=== PATIENT | female | born 1975 | race Caucasian/White ===

== ENCOUNTER 2020-01-04 13:04 | Emergency (ER) | payer MEDICARE, MEDICAID, SELFPAY ==
--- NOTE | 2020-01-04 12:56 | ECG_ITS ---
APPROVED REPORT Exam: Resting ECG HR:95 bpm ECG Measurements Heart Rate 95 AXES [place] 134 P 44 QRSd 74 QRS -3 QT 362 T 11 QTc 454 <Conclusion> Normal sinus rhythm Nonspecific ST abnormality Abnormal ECG Electronically signed by : Ermias Owens, 01/05/2020 08:26:17
[2020-01-04 13:05] VITALS: BP 121/70; PULSE 101; RESP 19; TEMP 36.6; O2SAT 98; BMI 42.0
--- NOTE | 2020-01-04 13:05 | HMH.EDGENADL ---
ED Disposition Clinical Impression: Palpitations Disposition: Home, Self-Care Condition on Discharge: Good Instructions: DI for Palpitations Additional Instructions: Return to the emergency room if symptoms return. Call Dr. Strange's office to schedule follow-up appointment. Referrals: Jonah Klein [Primary Care Provider] - Aldo Strange MD [Staff Physician] - - Critical Care Critical Care Time: No Attestation: On , the high probability of a clinically significant, sudden or life threatening deterioration of the following system(s) required my full and direct attention, intervention and personal management. The time I documented below is in addition to time spent performing reported procedures but includes the following listed in this critical care notation. Medical Decision Making - Medical Records Medical records reviewed: Yes: I reviewed the patient's medical records. - Dickson Inquiry Pt receiving controlled substance: No Vital Signs: 01/04/20 13:05 01/04/20 13:35 01/04/20 14:21 Temperature 98 F Temperature Source Oral Pulse Rate Pulse Rate [Left Radial] 101 H 91 H 73 Respiratory Rate 19 20 Blood Pressure Blood Pressure [Right Radial Artery] 121/70 130/80 113/73 Blood Pressure Mean [Right Radial Artery] 87 96 86 Blood Pressure Source [Right Radial Artery] Automatic Cuff Blood Pressure Position Blood Pressure Position [Right Radial Artery] Sitting Sitting Sitting 02 Sat by Pulse Oximetry 98 98 Oxygen Delivery Method Room Air Room Air 01/04/20 15:00 01/04/20 16:10 Temperature 98 F Temperature Source Oral Pulse Rate 78 Pulse Rate [Left Radial] 82 Respiratory Rate 20 16 Blood Pressure 123/74 Blood Pressure [Right Radial Artery] 109/68 L Blood Pressure Mean [Right Radial Artery] 81 Blood Pressure Source [Right Radial Artery] Automatic Cuff Blood Pressure Position Sitting Blood Pressure Position [Right Radial Artery] Supine 02 Sat by Pulse Oximetry 97 Oxygen Delivery Method Room Air Room Air - Lab Data Lab results reviewed: Yes: I reviewed the patient's lab results. Lab Results 01/04/20 13:25: WBC 13.1 H, RBC 4.53, Hgb 14.4, Hct 40.5, MCV 89.5, MCH 31.7 H, MCHC 35.5 H, RDW 13.1, Plt Count 307, MPV 7.5, Neut % (Auto) 82.4 H, Lymph % (Auto) 13.6, [place] % (Auto) 3.0, Eos % (Auto) 0.6, Baso % (Auto) 0.4, Neut # (Auto) 10.8 H, Lymph # (Auto) 1.8, [place] # (Auto) 0.4, Eos # (Auto) 0.1, Baso # (Auto) 0.1 01/04/20 13:25: Sodium 141, Potassium 4.1, Chloride 105, Carbon Dioxide 27, Anion Gap 13.1, BUN 11, Creatinine 0.90, Estimated Creat Clear 56, Estimated GFR 67, Est GFR ( Amer) 82, Glucose 124 H, Calcium 9.1, Troponin I < 0.01 01/04/20 13:25: TSH 1.15, Free T4 Index 3.8 L, Thyroxine (T4) 13.4 H, T3 Uptake 28 01/04/20 13:25: D-Dimer 199 01/04/20 15:28: Troponin I < 0.01 Result diagrams: 01/04/20 13:25 01/04/20 13:25 - Radiology Data #1 Image(s): Chest Image Reviewed: Yes I reviewed the patient's radiology image, Yes I have reviewed radiologist's interpretation Preliminary Findings: Normal/NAD - ECG Data Tracing #1 EKG interpreted by Jonah Huber MD: Rhythm: sinus Rate: 96 [place]: normal Ectopy: none Conduction: normal ST Segment Changes: none T Wave Changes: none Q Waves: none No evidence of acute ischemia or injury Normal electrocardiogram - Reevaluation(s) Time: 15:25 Reevaluation #1: Patient appears extremely anxious. States she is feeling extremely anxious and feels stuck . She feels like she needs to go. Discussed doing a second troponin, she is agreeable to that but would like to try now instead of waiting for 3 hours. She also complains of some discomfort behind her left ear. She says I do not think it has anything to do with anything . General Adult HPI - General Chief complaint: Chest Pain Stated complaint: chest pain Time Seen by Provider: 01/04/20 13:20 - History of Present Illness HPI narrative:
--- NOTE | 2020-01-04 13:27 | XR_ITS ---
PROCEDURE: XR CHEST PORTABLE CLINICAL HISTORY: palpatations COMPARISON: No exams were available for comparison FINDINGS: The cardiomediastinal silhouette and pulmonary vascularity are within normal limits. The lungs are clear without infiltrates, suspicious nodules, or pleural effusions. No acute bony abnormalities. IMPRESSION: No acute findings. Dictated b Flynn Moses MD 01/04/2020 15:04 Flynn Moses MD in [place] 01/04/2020 15:04
[2020-01-04 13:34] LABS: Basophils # 0.1 K/mm3 (0-0.2); Basophils % 0.4 % (0.1-2.0); Eosinophils # 0.1 K/mm3 (0.0-0.4); Eosinophils % 0.6 % (0.1-12.0); Hematocrit 40.5 % (37.0-47.0); Hemoglobin 14.4 g/dL (12.2-16.2); Lymphocytes # 1.8 K/mm3 (0.7-4.5); Lymphocytes % 13.6 % (10-50); Mean Corpuscular HGB Conc 35.5 g/dL (31.8-35.4); Mean Corpuscular Hemoglobin 31.7 pg (27.0-31.2); Mean Corpuscular Volume 89.5 fl (81-99); Mean Platelet Volume 7.5 fl (7.4-10.4); Monocytes # 0.4 K/mm3 (0.1-1.0); Neutrophils # 10.8 K/mm3 (1.8-7.8); Neutrophils % 82.4 % (37.0-80.0); Platelet Count 307 K/mm3 (142-424); Red Blood Count 4.53 M/mm3 (4.20-5.40); Red Cell Distribution Width 13.1 % (11.5-17.5); White Blood Count 13.1 K/mm3 (4.8-10.8)
[2020-01-04 13:35] VITALS: BP 130/80; PULSE 91; RESP 20; O2SAT 98
[2020-01-04 13:36] LABS: Chloride 105 mmol/L (98-107); Potassium 4.1 mmoL/L (3.5-5.1); Sodium 141 mmol/L (136-145)
[2020-01-04 13:39] LABS: Anion Gap 13.1 mEq/L (5-15); Blood Urea Nitrogen 11 mg/dl (7-17); Calcium 9.1 mg/dl (8.4-10.2); Carbon Dioxide 27 mmol/L (22.0-30.0); Creatinine Clearance Estimated 56 mL/min (50-200); Estimated Glomerular Filt Rate 67 ml/min (>60); GFR (African American) 82 ML/MIN (>60); Glucose 124 mg/dl (74-100)
[2020-01-04 13:52] LABS: Troponin I < 0.01 ng/ml (0.00-0.034)
[2020-01-04 14:03] LABS: D-Dimer 199 ng/mL (0-400)
[2020-01-04 14:21] VITALS: BP 113/73; PULSE 73
[2020-01-04 14:24] LABS: Free Thyroxine Index 3.8 ug/dL (5.93-13.13); T4 (Thyroxine) 13.4 ug/dl (5.53-11.0); Triiodothryronine (T3) Uptake 28 % (23.5-40.5)
[2020-01-04 14:38] LABS: Thyroid Stimulating Hormone 1.15 uIU/mL (0.465-4.68)
[2020-01-04 15:00] VITALS: BP 109/68; PULSE 82; RESP 20; O2SAT 97
[2020-01-04 15:57] LABS: Troponin I < 0.01 ng/ml (0.00-0.034)
[2020-01-04 16:10] VITALS: BP 123/74; PULSE 78; RESP 16; TEMP 36.6; O2SAT 98
== END 2020-01-04 16:12 | disposition home or self-care (01) ==
PROVIDERS: Emergency Provider Emergency Medicine; PCP Pediatrics
DX: R00.2 Palpitations (principal); R06.02 Shortness of breath; Z91.040 Latex allergy status
CPT/HCPCS: 71045; 80048; 84436; 84443; 84479; 84484; 85025; 85378; 93005; 99283

== ENCOUNTER 2020-03-27 12:06 | Emergency (ER) | payer MEDICARE, MEDICAID, SELFPAY ==
[2020-03-27 12:23] VITALS: BP 127/82; PULSE 84; RESP 20; TEMP 36.9; O2SAT 99; BMI 41.5
--- NOTE | 2020-03-27 12:25 | HMH.EDUTC ---
[facility] [place] Disposition Clinical Impression: Exposure to COVID-19 virus Disposition: Home, Self-Care Condition on Discharge: Good Instructions: Preventing the Spread of Coronavirus Discharge Instructions Additional Instructions: Drink plenty of fluids. Take tylenol for pain or fever. Follow up with your regular doctor. GO TO THE ER FOR ANY WORSENING SYMPTOMS Referrals: Jonah Klein [Primary Care Provider] - Time of Disposition: 12:28 Medical Decision Making - Medical Records Medical records reviewed: No: I reviewed the patient's medical records. - Dickson Inquiry Pt receiving controlled substance: No Vital Signs: 03/27/20 12:23 03/27/20 12:28 Temperature 98.4 F 98.4 F Temperature Source Oral Pulse Rate 84 Pulse Rate [Right Brachial] 84 Respiratory Rate 20 20 Blood Pressure 127/82 Blood Pressure [Right Arm] 127/82 Blood Pressure Mean [Right Arm] 97 Blood Pressure Source [Right Arm] Automatic Cuff Blood Pressure Position [Right Arm] Sitting 02 Sat by Pulse Oximetry 99 Oxygen Delivery Method Room Air Orders (Tests/Meds): ORDERS Category Date Time Status Covid-19 Nasal PCR Sendout Mp Stat Lab 03/27/20 12:20 Received [facility] [place] HPI - General Stated complaint: wants covid test Time Seen by Provider: 03/27/20 12:25 - History of Present Illness Provider Complaint: She is here to be checked for covid. She denies any symptoms. Her father has copd, so she is afraid that she could pack covid to him. She had to fly somewhere. - Related Data Allergies Allergy/AdvReac Type Severity Reaction Status Date / Time latex Allergy Verified 01/04/20 13:26 [facility] History - Hepatitis A Screen Attestation statement:: This patient has been screened for Hepatitis A risk factors. I have reviewed the patient's past medical history: Yes - Social History Alcohol Intake: never Occupational Status: other Household Members: other ROS Obtained: Yes All systems reviewed & no additional complaints - Constitutional Constitutional: Reports system reviewed and no additional complaints, except as docu - Eyes Eyes: Reports system reviewed and no additional complaints, except as docu - ENT Ears, Nose, Mouth, and Throat: Reports system reviewed and no additional complaints, except as docu - Cardiovascular Cardiovascular: Reports system reviewed and no additional complaints, except as docu - Respiratory Respiratory: Yes system reviewed and no additional complaints, except as docu - Gastrointestinal Gastrointestingal: Reports: system reviewed and no additional complaints, except as docu Physical Exam - General General appearance: alert, in no apparent distress - Head Head exam: atraumatic, normocephalic, normal inspection - Eye Eye exam: Present: normal appearance, PERRL, EOMI - ENT ENT exam: Present: normal exam, normal oropharynx, mucous membranes moist, TM's normal bilaterally, normal external ear exam - Neck Neck exam: Present: normal inspection, full ROM, trachea midline. Absent: meningismus, lymphadenopathy - Chest Chest inspection: Present: normal inspection, symmetric chest wall rise. Absent: tenderness - Respiratory Respiratory exam: Present: normal lung sounds bilaterally. Absent: respiratory distress - Cardiovascular Cardiovascular exam: Present: regular rate, normal rhythm. Absent: JVD - Abdominal Exam Abdominal exam: Present: soft, normal bowel sounds. Absent: distention, tenderness, guarding - Extremities Exam Extremities exam: Present: normal inspection, full ROM, normal capillary refill. Absent: calf tenderness - Back Exam Back exam: Present: normal inspection. Absent: tenderness - Neurological Exam Neurological exam: Present: alert, oriented X3 - Psychiatric Psychiatric exam: Present: normal affect, normal mood - Skin Skin exam: Present: warm, dry, intact, normal color - Lymphatic Lymphatic Findings: no adenopathy
[2020-03-27 12:28] VITALS: BP 127/82; PULSE 84; RESP 20; TEMP 36.9; O2SAT 99
[2020-03-28 12:18] LABS: Covid-19 Nasal PCR Sendout Lex Not Detected
== END 2020-03-27 12:30 | disposition home or self-care (01) ==
PROVIDERS: Emergency Provider Nurse Practitioner Family; PCP Pediatrics
DX: Z20.828 Contact with and (suspected) exposure to other viral communicable diseases (principal)
CPT/HCPCS: 99201; U0004

== ENCOUNTER 2020-04-21 11:35 | Emergency (ER) | payer MEDICARE, MEDICAID, SELFPAY ==
[2020-04-21 12:15] VITALS: BP 115/86; PULSE 71; RESP 16; TEMP 36.8; O2SAT 98; BMI 41.5
--- NOTE | 2020-04-21 12:37 | HMH.EDUTC ---
[facility] [place] Disposition Clinical Impression: Exposure to COVID-19 virus Disposition: Home, Self-Care Condition on Discharge: Good Instructions: Preventing the Spread of Coronavirus Discharge Instructions Additional Instructions: *Monitor Temp, Over the counter Motrin or Tylenol as directed/as needed Tylenol every 4 hours and Motrin every 6 hours (as long as your family doctor has told you that you can take it) for fever or pain. and straight to ER if unable to lower temp less than 101.0 after medication given *Warm salt water gargles may help to soothe the throat *Throat Lozenges *Warm fluids like tea with honey may help to soothe the throat *Sleep elevated *Humidifier/Vaporizer *Flonase 2 sprays in each nostril daily but be aware that it may take 2-3 days before you notice improvement Follow up IMMEDIATELY for new or worsening symptoms or no Noticeable improvement over the next 48-72 hours. 911 for difficulty breathing or swallowing You was tested for today for COVID19 your test result should be back in the next 24-48 hours, you may call to the [facility] tomorrow to see if your test results are back and the result [phone] [facility] hours are 9am-9pm You was given a handout with instructions for Self Quarantine and Self isolation for while you wait on test results and what to do if they are positive If you are positive the Health Dept will be contacting you also Referrals: Jonah Klein [Primary Care Provider] - As needed Forms: Work/School Release Time of Disposition: 12:40 Medical Decision Making - Dickson Inquiry Pt receiving controlled substance: No Dickson was queried for this patient: No Vital Signs: 04/21/20 12:15 Temperature 98.2 F Temperature Source Oral Pulse Rate [Right Brachial] 71 Respiratory Rate 16 Blood Pressure [Right Arm] 115/86 Blood Pressure Mean [Right Arm] 95 Blood Pressure Source [Right Arm] Automatic Cuff Blood Pressure Position [Right Arm] Sitting 02 Sat by Pulse Oximetry 98 Oxygen Delivery Method Room Air Orders (Tests/Meds): ORDERS Category Date Time Status Covid-19 Nasal PCR Sendout Mp Routine Lab 04/21/20 12:10 Received [facility] [place] HPI - General Stated complaint: exposure AND symtoms Time Seen by Provider: 04/21/20 12:37 Mode of Arrival: Ambulatory Source of Information: Patient Limitations: No Limitations Description of Symptoms (Recalled from Triage Doc. by RN): PATIENT REQUESTING COVID TEST D/T EXPOSURE LAST WEEK. C/O DRAINAGE, SORE THROAT, AND COUGH THAT STARTED TUESDAY HEENT Symptoms (Recalled from RN notes): Yes Resp Symptoms (Recalled from RN notes): Yes Skin Symptoms (Recalled from RN notes): No MS Symptoms (Recalled from RN notes): No Functional Status (Recalled from RN notes): WNL - History of Present Illness Provider Complaint: Patient states that she was recently exposed to family member that tested positive for COVID States that she has been having throat irritation, drainage and cough States that she come in today to get tested for COVID - Related Data Allergies Allergy/AdvReac Type Severity Reaction Status Date / Time latex Allergy Verified 01/04/20 13:26 - Worker's Comp Is this a Worker's Comp case?: No [facility] History - Hepatitis A Screen Drug use history?: No High risk sexual behaviors?: No History of sexually transmitted infection?: No Currently employed?: No Childcare worker?: No Do you have indoor plumbing?: Yes Do you have electricity?: Yes Attestation statement:: This patient has been screened for Hepatitis A risk factors. I have reviewed the patient's past medical history: Yes - Social History Alcohol Intake: never Occupational Status: other Household Members: other ROS Obtained: Yes All systems reviewed & no additional complaints, Yes Systems reviewed as appropriate & no additional complaints - Constitutional Constitutional: Reports system reviewed and no additional complaints, except as docu, Reports body ache, Reports chills, R
[2020-04-21 12:38] VITALS: BP 115/86; PULSE 71; RESP 16; TEMP 36.8; O2SAT 98
[2020-04-22 13:23] LABS: Covid-19 Nasal PCR Sendout Lex Positive
--- NOTE | 2020-04-22 15:52 | PC.NURSE ---
PT NOTIFIED OF POSITIVE COVID RESULTS
== END 2020-04-21 12:40 | disposition home or self-care (01) ==
PROVIDERS: Emergency Provider Nurse Practitioner; PCP Pediatrics
DX: Z20.828 Contact with and (suspected) exposure to other viral communicable diseases (principal); J02.9 Acute pharyngitis, unspecified; R05 Cough
CPT/HCPCS: 99201; U0004

== ENCOUNTER → 2021-05-11 08:42 | Outpatient (CLI) | payer MEDICARE, MEDICAID, SELFPAY | PROVIDERS: PCP Pediatrics; Visit Provider Nurse Practitioner | DX: Z20.822 Contact with and (suspected) exposure to COVID-19 (principal) | CPT/HCPCS: C9803; U0003; U0005 ==